=== PATIENT | female | born 1990 | race Hispanic/Latino ===

== ENCOUNTER 2023-12-18 23:48 | Emergency (ER) | payer OTHER ==
[~2023-12-18] VITALS: Ht 162.6 cm; Wt 79.8 kg
[2023-12-19 00:19] LABS: BASOPHILS # (AUTO) 0.04 K/uL (0.00-0.20); BASOPHILS % (AUTO) 0.4 % (0.0-5.0); EOSINOPHILS # (AUTO) 0.25 K/uL (0.00-0.70); EOSINOPHILS % (AUTO) 2.6 % (0.0-8.0); IMMATURE GRANULOCYTE ABSOLUTE 0.03 K/uL (0-1); LYMPHOCYTES # (AUTO) 3.2 K/uL (1.0-4.8); LYMPHOCYTES % (AUTO) 32.6 % (21.0-51.0); MEAN CORPUSCULAR HEMOGLOBIN 29.9 pg (27.0-33.0); MEAN CORPUSCULAR HGB CONC 34.4 g/dL (32.0-36.0); MEAN CORPUSCULAR VOLUME 86.7 fL (79-99); MONOCYTES # (AUTO) 0.7 K/uL (0.1-1.0); MONOCYTES % (AUTO) 6.7 % (3.0-13.0); NEUTROPHILS # (AUTO) 5.6 K/uL (1.8-7.7); NEUTROPHILS % (AUTO) 57.4 % (40.0-77.0); PLATELET COUNT (AUTO) 235 K/uL (130-400); RED BLOOD CELL COUNT(AUTO) 4.15 MIL/uL (4.00-5.50); RED CELL DISTRIBUTION WIDTH 13.2 % (11.0-15.5); WHITE BLOOD COUNT (AUTO) 9.8 K/uL (4.8-10.8)
[2023-12-19 00:34] LABS: CREATININE 0.7 mg/dL (0.5-1.0); POTASSIUM 3.4 mmol/L (3.5-5.1)
[2023-12-19 00:39] LABS: ALBUMIN 3.4 g/dL (3.5-5.0); BILIRUBIN,TOTAL 0.3 mg/dL (0.2-1.0); TOTAL PROTEIN, SERUM 7.8 g/dL (6.0-8.3)
[2023-12-19 00:44] LABS: APPEARANCE,URINE CLEAR (CLEAR); BILIRUBIN,URINE NEGATIVE (NEGATIVE); COLOR,URINE COLORLESS (YELLOW); GLUCOSE, URINE (UA) NEGATIVE (NEGATIVE); KETONES,URINE NEGATIVE (NEGATIVE); LEUKOCYTE ESTERASE ,URINE NEGATIVE Leu/uL (NEGATIVE); NITRATE,URINE NEGATIVE (NEGATIVE); OCCULT BLOOD,URINE NEGATIVE (NEGATIVE); PROTEIN,URINE NEGATIVE (NEGATIVE); UROBILINOGEN,URINE 0.2 mg/dL (0.2-1.0)
[2023-12-19 00:49] LABS: ADD UA MICROSCOPIC NO
[2023-12-19 02:42] VITALS: BP 105/62; PULSE 70; RESP 17; O2SAT 100
[2023-12-19] MEDS ORDERED: ONDA-104 PO (02:46)
== END 2023-12-19 03:09 | disposition home or self-care (01) ==
LOC: EDH 23:48
DX: B34.9 Viral infection, unspecified (principal)
CPT/HCPCS: 36415; 71045; 80053; 81003; 81025; 84484; 85025; 85378; 93005

== ENCOUNTER 2024-07-10 10:43 | Inpatient (IN) | payer SELFPAY ==
[~2024-07-10 10:43] MED LIST: ACET-2079 PO
--- NOTE | 2024-07-10 11:08 | ERN ---
General Chief Complaint: Abdominal Pain Stated Complaint: ABD PAIN History of Present Illness Initial Comments 33-year-old female presents to the ED for evaluation of abdominal pain onset 1 day ago. Patient denies any nausea, vomiting, constipation or any other associated symptoms at this time. Patient states she has history of cholecystectomy and . Allergies: Coded Allergies: No Known Allergies (Unverified Allergy, Unknown, 12/18/23) Home Meds Active Scripts Acetaminophen with Codeine (Acetaminophen-Cod #3 Tablet) 300 Mg-30 Mg Tablet, 1 EACH PO Q4HPRN, #30 TAB Prov:LATOYA CRAIN MD 01/23/24 Past Medical History Past Medical History: No Pertinent History Past Surgical History: Family History Family History: Negative Social History Social History: Negative, Lives with family ROS Dictation Constitutional: Negative for fever,chills, and weight loss Eyes: Negative for injury, pain,redness, and discharge ENT: Negative for injury,pain or swelling Cardiovascular: Negative for chest pain, palpitations, and edema Respiratory: Negative for shortness of breath, cough, and wheezing, Abdomen/GI: Positive for abdominal pain, negative for nausea, vomiting, diarrhea, and constipation Back: Negative for injury and pain : Negative for injury, bleeding and discharge MS/Extremity: Negative for injury and deformity Skin: Negative for rash, and discoloration Neuro: Negative for headache, weakness, numbness, tingling, and seizure Psych: Negative for suicide ideation, homicidal ideation, and hallucinations Physical Exam Physical Exam Dictation General: awake, alert, NAD Head/Face: Normocephalic, atraumatic Eyes: PERRL, EOMI, vision at baseline ENT: oral cavity clear, TMs clear, no signs of infection Neck: Trachea midline, supple, no nuchal rigidity Cardiovascular: RRR, normal S1/S2, No MRGs, no JVD Respiratory: CTAB, no respiratory distress, No rales or wheezes Abdomen: Soft, generalized tenderness, non-distended, normal bowel sounds, no guarding or rebound. Skin: Warm, dry, normal turgor, no rash MS/Extremity: Pulses equal, no cyanosis, neurovascular intact, FROM Neuro: COAx4, GCS 15, strength 5/5, CN 2-12 intact, normal cerebellar exam, normal gait, Psych: Normal behavior, mood, and affect normal Results Laboratory and Microbiology Lab and Micro Result Labs Reviewed?: Yes EKG/XRAY/US/CT/MRI CT Scan Comment REASON: abd pain ORDERING PHYSICIAN: SABINE ROSAS MD PROCEDURE: ABD PEL WO - CT ABDOMEN/PELVIS W/O CONTRAST CT ABDOMEN/PELVIS W/O CONTRAST REASON: abd pain COMPARISON: 01/20/2024 FINDINGS: Lung bases are clear. There are no focal liver lesions. There are normal-appearing kidneys.. Spleen and pancreas appear unremarkable. There has been a previous cholecystectomy. The appendix is distended to between 10 and 11 mm. There is minimal adjacent inflammation. These findings could represent early acute uncomplicated appendicitis in the appropriate clinical setting. Bowel loops appear otherwise unremarkable. There is no evidence of obstruction. There is no evidence of free fluid or intraperitoneal air. There are no focal fluid collections. Aorta and retroperitoneum appear normal as do pelvic soft tissue structures. The anterior abdominal wall is intact. Osseous structures appear unremarkable. IMPRESSION: 1. Enlarged appendix with some minimal adjacent inflammation, this may represent early acute unconjugated appendicitis in the appropriate clinical setting. 2. Absent gallbladder. 3. Otherwise unremarkable exam. CT was performed with one or more following dose reduction techniques: automated exposure control, adjustment of the mA and kv according to patient's size, or use of a iterative reconstruction technique. DICTATED BY: CLAUDIA GRIGGS MD DATE: 07/10/24 1502 MDM MDM: Differential diagnosis: Abdominal pain, appendicitis 1513- MURRAY Shane consult 1529- hospitalist consult, accepts patient for admission Rationale: Tests considered and ordered secondary to shared decision making include: labs, ECG and radiology Risk of complication and/or morbidity or mortality of patient management: None Medications-Per medication reconciliation Need for hospitalization: Patient does meet criteria for hospitalization. Need for emergency major/minor surgery: No There are no social concerns with this patient. I independently interpreted the test that were performed, results were reviewed by me and considered findings on radiology if ordered. Medical management and examination interpretation discussions were had by me with other qualified healthcare professionals as indicated for the patient's care. ED Course DX & DISP Disposition: Inpatient Decision to Admit Date: Jul 10, 2024 Decision to Admit Time: 15:18 Departure Impression: Primary Impression: Acute appendicitis Condition: Stable Referrals: NONE (PCP) I have reviewed, & agreed with my scribe's, documentation. (Entered by Neri Medrano, acting as a scribe for Dr. Rosas) I personally scribed for SABINE ROSAS MD (DON) on 07/10/24 at 11:08. Electronically submitted by Neri Medrano (Paperless Post[employer]). I personally scribed for SABINE ROSAS MD (DON) on 07/10/24 at 15:18. Electronically submitted by Neri Medrano ([email or web address]). I personally scribed for SABINE ROSAS MD (DON) on 07/10/24 at 15:35. Electronically submitted by Neri Medrano ([email or web address]). I personally scribed for SABINE ROSAS MD (DON) on 07/10/24 at 16:02. Electronically submitted by Neri Medrano ([email or web address]). I personally scribed for SABINE ROSAS MD (DON) on 07/10/24 at 16:50. Electronically submitted by Neri Medrano (Paperless PostO). SABINE ROSAS MD Jul 10, 2024 11:08
[2024-07-10 11:43] LABS: BASOPHILS # (AUTO) 0.04 K/uL (0.00-0.20); BASOPHILS % (AUTO) 0.3 % (0.0-5.0); EOSINOPHILS # (AUTO) 0.08 K/uL (0.00-0.70); EOSINOPHILS % (AUTO) 0.6 % (0.0-8.0); HEMATOCRIT 36.6 % (36-48); IMMATURE GRANULOCYTE ABSOLUTE 0.04 K/uL (0-1); LYMPHOCYTES # (AUTO) 1.6 K/uL (1.0-4.8); LYMPHOCYTES % (AUTO) 11.2 % (21.0-51.0); MEAN CORPUSCULAR HEMOGLOBIN 29.2 pg (27.0-33.0); MEAN CORPUSCULAR HGB CONC 33.3 g/dL (32.0-36.0); MEAN CORPUSCULAR VOLUME 87.6 fL (79-99); MONOCYTES # (AUTO) 0.7 K/uL (0.1-1.0); NEUTROPHILS # (AUTO) 11.6 K/uL (1.8-7.7); NEUTROPHILS % (AUTO) 82.6 % (40.0-77.0); PLATELET COUNT (AUTO) 217 K/uL (130-400); RED BLOOD CELL COUNT(AUTO) 4.18 MIL/uL (4.00-5.50); RED CELL DISTRIBUTION WIDTH 12.8 % (11.0-15.5); WHITE BLOOD COUNT (AUTO) 14.1 K/uL (4.8-10.8)
[2024-07-10 11:55] LABS: CREATININE 0.7 mg/dL (0.5-1.0); POTASSIUM 3.4 mmol/L (3.5-5.1)
[2024-07-10 12:06] LABS: ALBUMIN 3.7 g/dL (3.5-5.0); BILIRUBIN,TOTAL 0.8 mg/dL (0.2-1.0); TOTAL PROTEIN, SERUM 7.6 g/dL (6.0-8.3)
[2024-07-10] MEDS: LACTATED RINGERS 1000ML 1,000 ML IV ONE (13:00)
[2024-07-10 14:32] LABS: APPEARANCE,URINE CLEAR (CLEAR); BILIRUBIN,URINE NEGATIVE (NEGATIVE); COLOR,URINE LIGHT-YELLOW (YELLOW); GLUCOSE, URINE (UA) NEGATIVE (NEGATIVE); KETONES,URINE 40 mg/dL (NEGATIVE); LEUKOCYTE ESTERASE ,URINE NEGATIVE Leu/uL (NEGATIVE); NITRATE,URINE NEGATIVE (NEGATIVE); OCCULT BLOOD,URINE NEGATIVE (NEGATIVE); PH,URINE 5.5 (5.0-8.0); PROTEIN,URINE NEGATIVE (NEGATIVE); UROBILINOGEN,URINE 0.2 mg/dL (0.2-1.0)
[2024-07-10 14:34] LABS: ADD UA MICROSCOPIC YES; BACTERIA,URINE RARE /HPF (None Seen); MUCUS,URINE RARE LPF (None Seen); SQUAMOUS EPITHELIAL CELL,UR FEW /HPF (0-2); WBC,URINE 0-1 /HPF (0-1)
--- NOTE | 2024-07-10 15:08 | HMCIMG ---
CT ABDOMEN/PELVIS W/O CONTRAST REASON: abd pain COMPARISON: 01/20/2024 FINDINGS: Lung bases are clear. There are no focal liver lesions. There are normal-appearing kidneys.. Spleen and pancreas appear unremarkable. There has been a previous cholecystectomy. The appendix is distended to between 10 and 11 mm. There is minimal adjacent inflammation. These findings could represent early acute uncomplicated appendicitis in the appropriate clinical setting. Bowel loops appear otherwise unremarkable. There is no evidence of obstruction. There is no evidence of free fluid or intraperitoneal air. There are no focal fluid collections. Aorta and retroperitoneum appear normal as do pelvic soft tissue structures. The anterior abdominal wall is intact. Osseous structures appear unremarkable. IMPRESSION: 1. Enlarged appendix with some minimal adjacent inflammation, this may represent early acute unconjugated appendicitis in the appropriate clinical setting. 2. Absent gallbladder. 3. Otherwise unremarkable exam. CT was performed with one or more following dose reduction techniques: automated exposure control, adjustment of the mA and kv according to patient's size, or use of a iterative reconstruction technique.
[2024-07-10] MEDS ORDERED: hydroMORPHone 2 MG VIAL (2MG/ML) IM ONE (15:30)
--- NOTE | 2024-07-10 15:43 | HP ---
[facility] HISTORY [facility] PHYSICAL Date of Service: Jul 10, 2024 Time of Service: 15:41 HISTORY OF PRESENT ILLNESS: [ ] This is a 33-year-old female that presents in ED with chief complaints of right lower quad pain. Onset started one day ago. Patient's pain comes in waves. Aggravating factors none, alleviating factors none. Denies nausea, vomiting, constipation. ER workup imaging revealed Enlarged appendix with some minimal adjacent inflammation, this may represent early acute unconjugated appendicitis surgeon consulted per ER physician. Patient was seen in ED tract 2. Patient appears nontoxic denied chest pain or shortness a breath we will wait for surgeon's recommendations. Keep NPO REVIEW OF SYSTEMS CONSTITUTIONAL: Denies fevers, chills, or night sweats. No unintentional weight loss reported. NEUROLOGICAL: Denies headache, amaurosis fugax, motor weakness, sensory deficit, vertigo/spinning sensation, gait abnormalities, or tremors. ENT: No hearing loss, otalgia, otorrhea, rhinitis, rhinorrhea, hoarseness, or sore throat. CARDIOVASCULAR: Denies any exertional angina, dyspnea on exertion, orthopnea, paroxysmal nocturnal dyspnea, palpitations, life-threatening arrhythmias, claudication. PULMONARY: Denies any shortness of breath, cough, phlegm/sputum, hemoptysis, pleuritic chest pain. SLEEP: Denies morning headaches, daytime somnolence or napping. Denies difficulty falling asleep, staying asleep, waking from sleep. Denies knowledge of snoring. GASTROINTESTINAL: Denies any type of dysphagia to either liquids or solids. Denies nausea, vomiting, pyrosis, early satiety, abdominal pain, diarrhea, constipation, or changes in stool consistency or caliber. Denies coffee-ground emesis, hematemesis, hematochezia, or melanotic stools. GENITOURINARY: Denies frequency, urgency, nocturia, hematuria or incontinence (Storage/Irritative symptoms.) Low urinary stream, straining to void, urinary intermittency or hesitancy, splitting of the voiding stream, terminal dribbling. ENDOCRINOLOGIC: Denies polyuria, polydipsia, polyphagia or heat/cold intolerances. HEMATOLOGIC: Denies thrombophilia/previous clots, or coagulopathy/bleeding disorders. ONCOLOGIC: Denies personal history of malignancy. DERMATOLOGIC: Denies rashes or pruritus. PSYCHIATRIC: Denies any suicidal or homicidal ideation. Denies hallucinations. PAST MEDICAL HISTORY: [ ] None PAST SURGICAL HISTORY: [ ] , gallbladder removal PAST SOCIAL HISTORY: [ ] Denies smoking tobacco products and alcohol use FAMILY HISTORY: [ ] Noncontributory Coded Allergies: No Known Allergies (Unverified Allergy, Unknown, 12/18/23) PHYSICAL EXAM GENERAL APPEARANCE: The patient is awake, alert, and oriented, in no acute cardiopulmonary distress. NEUROLOGICAL: Cranial nerves II-XII grossly intact. Motor is 5/5 in bilateral upper and lower extremities proximal to distal. No sensory deficits. HEENT: Face is symmetric. Pupils are equal and reactive. Extraocular movements are intact. NECK: Supple. No JVD. No thyromegaly. No submental, submandibular, pre- /postauricular, occipital or supraclavicular lymphadenopathy. CHEST: Normal chest expansion. No Telemetry. LUNGS: Absence of any rales, rhonchi or any wheezing. CARDIOVASCULAR: Regular. S1 and S2 normal. No appreciable rubs, murmurs or gallops. ABDOMEN: Soft, nontender, and nondistended. There is no rebound, voluntary guarding, or rigidity. : Deferred. No Cao. EXTREMITIES: Non-edematous and not cyanotic. No clubbing. Good capillary refill. SKIN: No skin breakdown. LABS: Laboratory: Test 07/10/24 14:19 07/10/24 11:34 Range/Units Urine Color LIGHT-YELLOW YELLOW Urine Appearance CLEAR CLEAR Urine pH 5.5 5.0-8.0 Urine Specific [place] 1.012 1.001-1.031 Urine Protein NEGATIVE NEGATIVE mg/dL Urine Glucose (UA) NEGATIVE NEGATIVE mg/dL Urine Ketones 40 H NEGATIVE mg/dL Urine Occult Blood NEGATIVE NEGATIVE Urine Nitrate NEGATIVE NEGATIVE Urine Bilirubin NEGATIVE NEGATIVE mg/dL Urine Urobilinogen 0.2 0.2-1.0 mg/dL Urine Leukocyte Esterase NEGATIVE NEGATIVE Melody/uL Urine RBC None 0-1 /HPF Urine WBC 0-1 0-1 /HPF Urine Squamous Epithelial Cells FEW 0-2 /HPF Urine Bacteria RARE None Seen /HPF White Blood Count 14.1 H 4.8-10.8 K/uL Red Blood Count 4.18 4.00-5.50 MIL/uL Hemoglobin 12.2 12.0-16.0 g/dL Hematocrit 36.6 36-48 % Mean Corpuscular Volume 87.6 79-99 fL Mean Corpuscular Hemoglobin 29.2 27.0-33.0 pg Mean Corpuscular Hemoglobin Concent 33.3 32.0-36.0 g/dL Red Cell Distribution Width 12.8 11.0-15.5 % Platelet Count 217 130-400 K/uL Mean Platelet Volume 10.6 H 7.5-10.5 fL Immature Granulocyte % (Auto) 0.3 0-1 % Neutrophils (%) (Auto) 82.6 H 40.0-77.0 % Lymphocytes (%) (Auto) 11.2 L 21.0-51.0 % Monocytes (%) (Auto) 5.0 3.0-13.0 % Eosinophils (%) (Auto) 0.6 0.0-8.0 % Basophils (%) (Auto) 0.3 0.0-5.0 % Neutrophils # (Auto) 11.6 H 1.8-7.7 K/uL Lymphocytes # (Auto) 1.6 1.0-4.8 K/uL Monocytes # (Auto) 0.7 0.1-1.0 K/uL Eosinophils # (Auto) 0.08 0.00-0.70 K/uL Basophils # (Auto) 0.04 0.00-0.20 K/uL Absolute Immature Granulocyte (auto 0.04 0-1 K/uL Nucleated Red Blood Cells 0.0 0.0-0.19 % Sodium Level 140 136-145 mmol/L Potassium Level 3.4 L 3.5-5.1 mmol/L Chloride Level 103 101-111 mmol/L Carbon Dioxide Level 29 21-32 mmol/L Blood Urea Nitrogen 11 7-18 mg/dL Creatinine 0.7 0.5-1.0 mg/dL Glomerular Filtration Rate Calc 116 >90 mL/min Random Glucose 109 H 70-105 mg/dL Total Calcium 8.6 8.5-10.1 mg/dL Total Bilirubin 0.8 0.2-1.0 mg/dL Aspartate Amino Transf (AST/SGOT) 25 10-37 U/L Alanine Aminotransferase (ALT/SGPT) 30 12-78 U/L Alkaline Phosphatase 90 50-136 U/L Total Creatine Kinase 139 21-232 U/L Total Protein 7.6 6.0-8.3 g/dL Albumin 3.7 3.5-5.0 g/dL Lipase 30 16-77 U/L Human Chorionic Gonadotropin, Quant 0 0-5 mIU/mL Current Medications Medications (Trade) Dose Ordered Sig/Mrak Route PRN Reason Start Time Stop Time Status Last Admin Dose Admin Piperacillin Sod/ Tazobactam Sod (Zosyn 3.375gm+NS 50ml) 3.375 gm Q12H STAT IV 07/10/24 15:12 07/10/24 15:21 DC DIAGNOSTICS / RADIOLOGY: [ ] ASSESSMENT: Acute appendicitis POA Intractable abdominal pain to Right upper quad POA PLAN: [ ] Admit to surgical floor General surgeon consulted DR Jean-Paul Soriano IV antibiotics Zosyn IV every 8 hours Pain management for adequate pain control Torodol 15 mg IV As needed for moderate pain morphine 2 mg IV for severe pain. NPO status; IV fluids LR at 75 mL/hour PRN: MEDICATIONS Tylenol 650 mg po every 4 hrs for fever Zofran 4 mg IV every 6 hrs for n/v Hydralazine 10 mg IV every 4 hrs systolic pressure > 160 Supportive measures: DVT ppx SCD's application to lower ext. , GI ppx famotidine 20 mg IV bid replace electrolytes as needed basis on protocol all questions answered time spent: > 35 min Supervising MD: Dr. Cobb c/d ADVANC[facility] CARE PLANNING 1. Which of the following were discussed? Hospice Care - Yes / No Therapeutic options - Yes / No Advance Directives - Yes / No Other discussions - 2. Discussed with who? 3. Voluntary nature of this service was explained to the patient? Yes / No 4. Amount of time spent - 5. Reviewed by Physician? (if this service was performed by NPP) Yes / No ATTESTATION BY PHYSICIAN I have seen and examined the patient. I reviewed the documentation, medical decision making, and treatment plan as noted by the mid-level provider above. I agree with the findings and plan of care. Archana Cobb MD, [facility] REPRESENTATIVE Jul 10, 2024 15:43
[2024-07-10] MEDS: ZOSYN 3.375GM +NS 50ML IV STA (15:45)
[2024-07-10] MEDS: ondanSETRON 4MG INJ IVP ONE (15:45)
[2024-07-10] MEDS: hydroMORPHone 0.5 MG SYG (0.5MG/0.5ML) IM ONE (15:46)
[2024-07-10] MEDS ORDERED: LACTATED RINGERS 1000ML 1,000 ML IV SCH (16:00)
[2024-07-10] MEDS ORDERED: MAGNESIUM 2GM PREMIX 50ML 50 ML IV PRN (16:00)
[2024-07-10] MEDS ORDERED: ondanSETRON 4MG INJ IVP PRN (16:00)
[2024-07-10] MEDS ORDERED: morPHINE 2 MG SYG IVP PRN (16:00)
[2024-07-10] MEDS ORDERED: ZOSYN 3.375GM +NS 50ML IVPB SCH ×2 (16:00→23:00)
[2024-07-10] MEDS ORDERED: PoTASSium chloRIDE 20MEQ/100ML 100 ML IV PRN (16:00)
[2024-07-10] MEDS ORDERED: ketOROlac 15MG/ML VIAL (15MG/ML) IV PRN (16:00)
[2024-07-10] MEDS ORDERED: acetaMINOPHEN 325 MG TAB PO PRN (16:00)
[2024-07-10] MEDS ORDERED: 0.9%NACL 50ML IV SCH (16:00)
[2024-07-10 16:47] VITALS: BP 108/88; PULSE 81; RESP 18; O2SAT 99
[2024-07-10] MEDS ORDERED: FAMOTIDINE 20MG VIAL IV SCH (21:00)
== END 2024-07-10 17:00 | disposition left against medical advice (07) | DRG 373 ==
LOC: EDH 10:43 → EDHIP 10:44
PROVIDERS: ADMIT Hospitalist; ATTEND Hospitalist
DX: K35.890 Other acute appendicitis without perforation or gangrene (principal); Z90.49 Acquired absence of other specified parts of digestive tract; Z98.891 History of uterine scar from previous surgery
CPT/HCPCS: 36415; 74176; 80053; 81001; 82550; 83690; 84702; 85025; 99285; G0378; J1171; J2405; J2543